=== PATIENT | male | born 1970 | race Caucasian/White ===

== ENCOUNTER 2018-04-21 19:00 | Emergency (ER) | payer BC ==
[~2018-04-21] VITALS: Ht 190.5 cm; Wt 95.3 kg
--- NOTE | ~2018-04-21 | EKG ---
[address] [place] [address] ELECTROCARDIOGRAM REPORT Name: NINOSKA MAGDALENO [id number] Admission: 04/21/18 Attend Phys: Discharge: 04/21/18 Date of : 74 Report #: [id number] THIS REPORT FOR: //name// [facility] ED Test Date: 2018-04-21 Test Time: 19:08:01 Pat Name: NINOSKA MAGDALENO Department: Room: Gender: [employer]: BRAYAN : 1970 Requested By: Alee Rivas Order Number: [id number] MD: Tommy Cevallos Measurements Intervals [place] Rate: 65 P: -2 SD: 125 QRS: 1 QRSD: 98 T: 39 QT: 412 QTc: 429 Interpretive Statements Sinus rhythm Normal tracing No previous ECG available for comparison Electronically Signed On 04-22-2018 7:58:26 CDT by Tommy Cevallos [email or web address] <ELECTRONICALLY SIGNED> By: Tommy Cevallos MD, [facility] 04/22/18 [id number] Tommy Cevallos MD, FACC /EPI
[~2018-04-21 19:00] MED LIST: NORCO 5-325 TA1 EACH PO; ZOFRAN ODT4 MG PO
[2018-04-21] MEDS ORDERED: ZANAFLEX2 MG PO (19:24)
[2018-04-21 19:57] LABS: ABSOLUTE NEUTROPHILS 5.3 thou/uL (1.4-8.2); BASOPHILS 0.5 % (0.0-2.0); HEMATOCRIT 48.5 % (42.0-52.0); HEMOGLOBIN 17.3 gm/dL (14.0-18.0); LYMPHOCYTES 23.9 % (24.0-44.0); MCH 33.8 pg (26.0-34.0); MCHC 35.7 g/dL (28.0-37.0); MCV 94.7 fL (80.0-100.0); MONOCYTES 8.5 % (1.0-8.0); PLATELET COUNT 178 thou/uL (150-400); POLYS 66.1 % (36.0-66.0); RBC 5.12 mil/uL (4.50-6.00); RDW 12.4 % (10.5-14.5)
[2018-04-21 20:11] LABS: ANION GAP 9 mmol/L (7-16); BUN 23 mg/dL (7-18); CALCIUM 9.9 mg/dL (8.5-10.1); CHLORIDE 100 mmol/L (98-107); CO2 26 mmol/L (21-32); CREATININE 1.1 mg/dL (0.7-1.3); GLUCOSE 96 mg/dL (74-106); POTASSIUM 3.4 mmol/L (3.5-5.1); SODIUM 135 mmol/L (136-145)
[2018-04-21 20:20] LABS: TROPONIN-I <0.06 ng/mL (<0.06)
[2018-04-21 23:06] VITALS: BP 122/84
== END 2018-04-21 23:06 | disposition home or self-care (01) ==
LOC: ER 19:00
PROVIDERS: Emergency Medicine
DX: R07.89 Other chest pain (principal); R06.00 Dyspnea, unspecified; K21.9 Gastro-esophageal reflux disease without esophagitis

== ENCOUNTER 2021-02-06 17:06 | Emergency (ER) | payer BC ==
[~2021-02-06] VITALS: Ht 190.5 cm; Wt 97.5 kg
[~2021-02-06 17:06] MED LIST changes: +ZANAFLEX2 MG PO
[2021-02-06] MEDS ORDERED: ADDERALL 20 MG20 MG PO (17:18)
[2021-02-06] MEDS ORDERED: HYDROXYZINE HCL25 M2 PO (17:44)
[2021-02-06] MEDS ORDERED: PREDNISONE 10 M10 M1 PO (17:44)
[2021-02-06 17:52] VITALS: BP 149/84
== END 2021-02-06 17:52 | disposition home or self-care (01) ==
LOC: ER 17:06
DX: L25.5 Unspecified contact dermatitis due to plants, except food (principal)